=== PATIENT | male | born 1990 | race Caucasian/White ===

== ENCOUNTER 2017-11-12 21:26 | Emergency (ER) | payer OTHER ==
[~2017-11-12] VITALS: Ht 182.9 cm; Wt 116.0 kg
[2017-11-12 21:33] VITALS: BP 165/71; PULSE 88; RESP 16; TEMP 99.1
--- NOTE | 2017-11-12 22:19 | RADRPT ---
EXAM DATE/TIME: 11/12/2017 21:49 [facility] COMPARISON: No previous studies available for comparison. INDICATIONS : Shortness of breath. MEDICAL HISTORY : None. SURGICAL HISTORY : None. ENCOUNTER: Initial ACUITY: 1 day PAIN SCORE: 0/10 LOCATION: Bilateral chest FINDINGS: PA and lateral views of the chest demonstrate the lungs to be symmetrically aerated without evidence of mass, infiltrate or effusion. The cardiomediastinal contours are unremarkable. Osseous structure s are intact. CONCLUSION: No acute disease. Augusto Weems MD on November 12, 2017 at 22:17 Board Certified Radiologist. This report was verified electronically.
[2017-11-12 22:22] LABS: AUTOMATED NEUTROPHIL # 6.9 TH/MM3 (1.8-7.7); BASOPHIL % 0.5 % (0.0-2.0); EOSINOPHIL # 0.2 TH/MM3 (0-0.4); EOSINOPHIL % 2.1 % (0.0-4.0); HEMATOCRIT 42.9 % (39.0-51.0); LYMPH % 18.7 % (9.0-44.0); LYMPHOCYTE # 1.9 TH/MM3 (1.0-4.8); MEAN CELL VOLUME 90.3 FL (80.0-100.0); MEAN CORPUSCULAR HEMOGLOBIN 31.6 PG (27.0-34.0); MEAN PLATELET VOLUME 8.6 FL (7.0-11.0); MONO % 8.8 % (0.0-8.0); MONOCYTE # 0.9 TH/MM3 (0-0.9); NEUT % 69.9 % (16.0-70.0); PLATELET COUNT 183 TH/MM3 (150-450); RED BLOOD COUNT 4.75 MIL/MM3 (4.50-5.90); RED CELL DISTRIBUTION WIDTH 12.9 % (11.6-17.2); WHITE BLOOD COUNT 9.9 TH/MM3 (4.0-11.0)
[2017-11-12 22:31] LABS: INTERNATIONAL NORMALIZED RATIO 1.1 RATIO; PROTHROMBIN TIME - PATIENT 10.7 SEC (9.8-11.6)
[2017-11-12 22:45] LABS: ALBUMIN 4.2 GM/DL (3.4-5.0); AST (GOT) 32 U/L (15-37); BICARBONATE 31.7 MEQ/L (21.0-32.0); BLOOD UREA NITROGEN 10 MG/DL (7-18); CALCIUM 8.9 MG/DL (8.5-10.1); CHLORIDE 103 MEQ/L (98-107); CREATININE 1.32 MG/DL (0.60-1.30); GLOMERULAR FILTRATION RATE 65 ML/MIN (>89); GLUCOSE,RANDOM 102 MG/DL (74-106); SODIUM (NA) 141 MEQ/L (136-145)
[2017-11-12 22:46] LABS: ALT (GPT) 39 U/L (12-78)
[2017-11-12 22:48] LABS: ALKALINE PHOSPHATASE 35 U/L (45-117); TOTAL BILIRUBIN ADULT 0.4 MG/DL (0.2-1.0); TOTAL PROTEIN 7.2 GM/DL (6.4-8.2)
[2017-11-12] MEDS ORDERED: SODIUM CHLOR 0.9% 1000 ML INJ 1,000 ML IV ONE ×2 (23:15)
[2017-11-12] MEDS ORDERED: IOHEXOL 350 MG/ML 10 ML VIAL (for RAD DIAG) IVCONTRAST ONE (23:39)
--- NOTE | 2017-11-12 23:51 | RADRPT ---
EXAM DATE/TIME: 11/12/2017 23:27 [facility] COMPARISON: No previous studies available for comparison. INDICATIONS : Shortness of breath, dizziness. IV CONTRAST: 65 cc Omnipaque 350 (iohexol) IV RADIATION DOSE: 10.94 CTDIvol (mGy) MEDICAL HISTORY : None SURGICAL HISTORY : None. ENCOUNTER: Initial ACUITY: 1 day PAIN SCALE: 0/10 LOCATION: chest TECHNIQUE: Volumetric scanning of the chest was performed using a pulmonary embolism protocol MIP images were re constructed. Using automated exposure control and adjustment of the mA and/or kV according to patien t size, radiation dose was kept as low as reasonably achievable to obtain optimal diagnostic quality images. DICOM format image data is available electronically for review and comparison. Follow-up recommendations for detected pulmonary nodules are based at a minimum on nodule size and pa tient risk factors according to Fleischner Society Guidelines. FINDINGS: PULMONARY ARTERIES: No filling defects are seen in the pulmonary arteries through the segmental level. LUNGS: There is no consolidation or pneumothorax . No concerning pulmonary nodule is visualized. PLEURAE: There is no pleural thickening or pleural effusion. MEDIASTINUM: There is good visualization of the great vessels of the middle mediastinum. No evidence of mediastin al or hilar adenopathy/mass. MUSCULOSKELETAL: Within normal limits for patient age. MISCELLANEOUS: The visualized upper abdominal organs demonstrate no acute abnormality. CONCLUSION: Normal examination. Michelet Ortez MD on November 12, 2017 at 23:45 Board Certified Radiologist. This report was verified electronically.
[2017-11-13] MEDS ORDERED: SODIUM CHLOR 0.9% 1000 ML INJ 1,000 ML IV ONE ×2
[2017-11-13 01:12] LABS: BICARBONATE 28.5 MEQ/L (21.0-32.0); CALCIUM 7.9 MG/DL (8.5-10.1); CREATININE 1.07 MG/DL (0.60-1.30)
--- NOTE | 2017-11-13 01:30 | PD ---
HPI Chief Complaint: Dizziness Time Seen by Provider: 21:33 Travel History International Travel<30 days: No Contact w/Intl Traveler<30days: No Traveled to known affect area: No History of Present Illness HPI 27-year-old male presents to the emergency department with chief complaint of Shortness of Breath, dizziness and near syncope. States he was driving to work and developed symptoms. He pulled over and allow them to pass and then began driving to work again. His symptoms returned this time stronger, he describes tunnel vision, sensation of pins and needle in bilateral hands and dizziness. He called 911 and requested to go to the emergency department. Patient is well otherwise takes no medications. No previous episodes he recently began training for a bodybuilding show. He reports using a low dose of anabolic steroids for the last 5 weeks. [facility] Past Medical History Tetanus Vaccination: Unknown Influenza Vaccination: No Social History Alcohol Use: No Tobacco Use: No Substance Use: No Allergies-Medications (Allergen,Severity, Reaction): Coded Allergies: No Known Allergies (Unverified , 11/12/17) Reported Meds & Prescriptions Reported Meds & Active Scripts Active No Active Prescriptions or Reported Medications Review of Systems Except as stated in HPI: all other systems reviewed are Neg Eyes: Positive: Visual changes HENT: Positive: Vertigo, No: Headaches Cardiovascular: No: Chest Pain or Discomfort, Syncope Respiratory: No: Cough, Shortness of Breath Gastrointestinal: No: Nausea, Vomiting, Abdominal Pain Genitourinary: No: Urgency Musculoskeletal: No: Myalgias, Arthralgias Skin: No Rash Neurologic: No: Weakness, Dizziness, Syncope Physical Exam Narrative GENERAL: Well-appearing 27-year-old male in no distress SKIN: Focused skin assessment warm/dry. HEAD: Atraumatic. Normocephalic. EYES: Pupils equal and round. No scleral icterus. No injection or drainage. ENT: No nasal bleeding or discharge. Mucous membranes pink and moist. NECK: Trachea midline. CARDIOVASCULAR: Regular rate and rhythm. No murmur appreciated. RESPIRATORY: No accessory muscle use. Clear to auscultation. Breath sounds equal bilaterally. GASTROINTESTINAL: Abdomen soft, non-tender, nondistended. Hepatic and splenic margins not palpable. MUSCULOSKELETAL: No obvious deformities. No clubbing. No cyanosis. No edema. NEUROLOGICAL: Awake and alert. No obvious cranial nerve deficits. Motor grossly within normal limits. Normal speech. PSYCHIATRIC: Appropriate mood and affect; insight and judgment normal. Data Data Last Documented VS Vital Signs Date Time Temp Pulse Resp B/P (MAP) Pulse Ox O2 Delivery O2 Flow Rate FiO2 11/12/17 21:33 99.1 88 16 165/71 (102) Orders Orders Complete Blood Count With Diff (11/12/17 21:38) Comprehensive Metabolic Panel (11/12/17 21:38) Act Partial Throm Time (Ptt) (11/12/17 21:38) Prothrombin Time / Inr (Pt) (11/12/17 21:38) Chest, Pa & Lat (11/12/17 ) Electrocardiogram (11/12/17 ) Creatine Kinase (Cpk) (11/12/17 21:38) CKMB (11/12/17 22:05) CKMB% (11/12/17 22:05) Ct Pulmonary Angiogram (11/12/17 ) Sodium Chlor 0.9% 1000 Ml Inj (Ns 1000 M (11/12/17 23:15) Sodium Chlor 0.9% 1000 Ml Inj (Ns 1000 M (11/12/17 23:15) Iohexol 350 Inj (Omnipaque 350 Inj) (11/12/17 23:39) Basic Metabolic Panel (Bmp) (11/12/17 23:55) Creatine Kinase (Cpk) (11/12/17 23:55) Sodium Chlor 0.9% 1000 Ml Inj (Ns 1000 M (11/13/17 00:00) Sodium Chlor 0.9% 1000 Ml Inj (Ns 1000 M (11/13/17 00:00) CKMB (11/13/17 00:30) CKMB% (11/13/17 00:30) Labs Laboratory Tests Test 11/12/17 22:05 11/13/17 00:30 White Blood Count 9.9 TH/MM3 Red Blood Count 4.75 MIL/MM3 Hemoglobin 15.0 GM/DL Hematocrit 42.9 % Mean Corpuscular Volume 90.3 FL Mean Corpuscular Hemoglobin 31.6 PG Mean Corpuscular Hemoglobin Concent 35.0 % Red Cell Distribution Width 12.9 % Platelet Count 183 TH/MM3 Mean Platelet Volume 8.6 FL Neutrophils (%) (Auto) 69.9 % Lymphocytes (%) (Auto) 18.7 % Monocytes (%) (Auto) 8.8 % Eosinophils (%) (Auto) 2.1 % Basophils (%) (Auto) 0.5 % Neutrophils # (Auto) 6.9 TH/MM3 Lymphocytes # (Auto) 1.9 TH/MM3 Monocytes # (Auto) 0.9 TH/MM3 Eosinophils # (Auto) 0.2 TH/MM3 Basophils # (Auto) 0.0 TH/MM3 CBC Comment DIFF FINAL Differential Comment Prothrombin Time 10.7 SEC Prothromb Time International Ratio 1.1 RATIO Activated Partial Thromboplast Time 26.6 SEC Blood Urea Nitrogen 10 MG/DL 10 MG/DL Creatinine 1.32 MG/DL 1.07 MG/DL Random Glucose 102 MG/DL 76 MG/DL Total Protein 7.2 GM/DL Albumin 4.2 GM/DL Calcium Level 8.9 MG/DL 7.9 MG/DL Alkaline Phosphatase 35 U/L Aspartate Amino Transf (AST/SGOT) 32 U/L Alanine Aminotransferase (ALT/SGPT) 39 U/L Total Bilirubin 0.4 MG/DL Sodium Level 141 MEQ/L 143 MEQ/L Potassium Level 3.6 MEQ/L 4.0 MEQ/L Chloride Level 103 MEQ/L 107 MEQ/L Carbon Dioxide Level 31.7 MEQ/L 28.5 MEQ/L Anion Gap 6 MEQ/L 8 MEQ/L Estimat Glomerular Filtration Rate 65 ML/MIN 82 ML/MIN Total Creatine Kinase 913 U/L 735 U/L Creatine Kinase MB 3.4 NG/ML Creatine Kinase MB % 0.4 % MDM Medical Decision Making Medical Screen Exam Complete: Yes Emergency Medical Condition: Yes Differential Diagnosis PE, Rhabdomyolysis, renal failure, dehydration, anxiety, electrolyte abnormality Narrative Course Patient was seen and evaluated in the emergency department. He was found to have an elevated CPK and some renal insufficiency. Patient was hydrated and well as CPK and creatinine improved his calcium dropped to 7.4. He was advised of the findings and to drink milk or use Tums as a calcium supplement. He is discharged home in stable condition with instructions for follow-up. He will return to the emergency department for reevaluation should his symptoms return Diagnosis Primary Impression: Hypocalcemia Patient Instructions: General Instructions, Hypocalcemia (ED) Scripts No Active Prescriptions or Reported Meds Disposition: 01 DISCHARGE HOME Condition: Good Sushil Martin DO November 13, 2017 01:30
--- NOTE | 2017-11-13 16:23 | EKG ---
Date Performed: 11/12/2017 Time Performed: 21:34:03 PTAGE: 27 years EKG: SINUS TACHYCARDIA ABNORMAL RHYTHM ECG INTERPRETATION BASED ON A DEFAULT AGE OF 39 YEARS NO PREVIOUS TRACING DOCTOR: Kali Castaneda Interpretating Date/Time 11/13/2017 16:21:25
== END 2017-11-13 02:03 | disposition home or self-care (01) ==
LOC: NEPC 21:26
DX: E83.51 Hypocalcemia (principal); R00.0 Tachycardia, unspecified
CPT/HCPCS: 71046; 71275; 80048; 80053; 82550; 82552; 85025; 85610; 85730; 93005; 99285; J7030; Q9967